=== PATIENT | female | born 1950 | race Caucasian/White ===

== ENCOUNTER 2021-09-30 08:38 | Emergency (ER) | payer MEDICARE ==
[~2021-09-30 08:38] MED LIST: ALLEGRA ALLERG180 MG PO; ALLOPURINOL 10100 MG PO; ALLOPURINOL 30300 MG PO; AUGMENTIN 500-1 EACH PO; BACTRIM DS TAB1 EACH PO; CRESTOR40 M1 PO; FLONASE ALLER15.8 ML; GUAIFENESI100 MG/5 M PO; JANUMET XR 50-1 EACH PO; MELATONIN5 M2 PO; METOPROLOL SUCC25 MG PO; MICON-GUARD 2% TOP; MIRALAX 238GM238 GM PO; MIRALAX17 GM PO; OLMESARTAN-HCT1 EAC1 PO; ROSUVASTATIN CA40 MG PO; SENNA LAX8.6 MG PO; SILVASORB44.4 ML TOP; SODIUM BICARBO650 M1 PO; STAHIST AD TAB1 EACH PO; TRAVOPROST2.5 ML EYEBOTH
[2021-09-30 11:12] LABS: BILIRUBIN NEGATIVE (NEGATIVE); BLOOD 3+ Ery/uL (NEGATIVE); CLARITY CLEAR (CLEAR); COLOR YELLOW (YELLOW); GLUCOSE (U) NORMAL (NORMAL); LEUKOCYTES 1+ Leu/uL (NEGATIVE); NITRITE NEGATIVE (NEGATIVE); PROTEIN TRACE (LOW) mg/dL (NEGATIVE); SPECIFIC GRAVITY 1.015 (1.001-1.030); UROBILINOGEN 0.2 mg/dL (0.2-1.0)
[2021-09-30 11:33] LABS: BASOPHIL 0.6 % (0-2); EOSINOPHIL 0.9 % (0-7); HCT 35.6 % (37.0-47.0); HGB 10.8 g/dl (12.5-16.0); LYMPHOCYTE 16.9 % (15-48); MCH 30.2 pg (25.0-31.0); MCHC 30.3 g/dL (32.0-36.0); MCV 99.4 fL (78.0-100.0); MONOCYTE 5.5 % (0-12); MPV 12.1 fL (6.0-9.5); NEUTROPHIL 75.4 % (41-80); NRBC 0; PLT 195 K/uL (150-400); RBC 3.58 M/uL (4.20-5.40); RDW 15.7 % (11.5-14.0); WBC 10.7 K/uL (4.0-10.5)
[2021-09-30 11:34] LABS: ALBUMIN 3.3 g/dL (3.4-5.0); BILIRUBIN - TOTAL 0.3 mg/dL (0.2-1.0); BUN/CREAT RATIO (CALC) 13.9 RATIO; CREATININE 2.31 mg/dL (0.51-0.95); GLOBULIN (CALCULATION) 3.9 g/dL; POTASSIUM 4.6 mmol/L (3.5-5.1); TOTAL PROTEIN 7.2 g/dL (6.4-8.2)
[2021-09-30 11:57] LABS: BACTERIA 1+
[2021-09-30] MEDS ORDERED: FIORICET1 EACH PO (12:42)
== END 2021-09-30 13:21 | disposition home or self-care (01) ==
LOC: FER 08:38
PROVIDERS: Emergency Medicine
DX: G43.909 Migraine, unspecified, not intractable, without status migrainosus (principal); E11.22 Type 2 diabetes mellitus with diabetic chronic kidney disease; I12.9 Hypertensive chronic kidney disease with stage 1 through stage 4 chronic kidney disease, or unspecified chronic kidney disease; N18.4 Chronic kidney disease, stage 4 (severe); Z91.041 Radiographic dye allergy status; Z88.6 Allergy status to analgesic agent
CPT/HCPCS: 36415; 70450; 80053; 81001; 85025; 87088; J2405

== ENCOUNTER 2021-12-19 12:21 | Inpatient (IN) | payer MEDICARE ==
[~2021-12-19] VITALS: Ht 154.9 cm; Wt 83.7 kg
[~2021-12-19 12:21] MED LIST changes: +FIORICET1 EACH PO
[2021-12-19 13:22] LABS: BASOPHIL 0.4 % (0-2); EOSINOPHIL 0.1 % (0-7); HCT 36.7 % (37.0-47.0); HGB 11.8 g/dl (12.5-16.0); LYMPHOCYTE 13.3 % (15-48); MCH 31.7 pg (25.0-31.0); MCHC 32.2 g/dL (32.0-36.0); MCV 98.7 fL (78.0-100.0); MONOCYTE 5.6 % (0-12); MPV 11.6 fL (6.0-9.5); NEUTROPHIL 80.1 % (41-80); NRBC 0; PLT 251 K/uL (150-400); RBC 3.72 M/uL (4.20-5.40); RDW 15.6 % (11.5-14.0); WBC 13.9 K/uL (4.0-10.5)
[2021-12-19 13:36] LABS: ALBUMIN 3.5 g/dL (3.4-5.0); BILIRUBIN - TOTAL 0.5 mg/dL (0.2-1.0); BUN/CREAT RATIO (CALC) 20.4 RATIO; CREATININE 2.3 mg/dL (0.51-0.95); GLOBULIN (CALCULATION) 3.8 g/dL; POTASSIUM 4.2 mmol/L (3.5-5.1); TOTAL PROTEIN 7.3 g/dL (6.4-8.2)
[2021-12-19 14:02] LABS: CORONAVIRUS 2019 SARS-COV-2 NEGATIVE (NEGATIVE); INFLUENZA A NAA NEGATIVE (NEGATIVE)
[2021-12-19 14:23] LABS: BILIRUBIN NEGATIVE (NEGATIVE); BLOOD 2+ Ery/uL (NEGATIVE); CLARITY HAZY (CLEAR); COLOR YELLOW (YELLOW); GLUCOSE (U) NORMAL (NORMAL); LEUKOCYTES 1+ Leu/uL (NEGATIVE); NITRITE NEGATIVE (NEGATIVE); PROTEIN 1+ mg/dL (NEGATIVE); SPECIFIC GRAVITY 1.015 (1.001-1.030); UROBILINOGEN 0.2 mg/dL (0.2-1.0)
[2021-12-19 14:41] LABS: BACTERIA 2+; URINARY WBC 20-50
[2021-12-19 15:29] LABS: LACTIC ACID 1.5 mmol/L (0.4-1.9)
[2021-12-19] MEDS ORDERED: MIRALAX17 GM PO (22:35)
[2021-12-19] MEDS ORDERED: ALENDRONATE SOD35 MG PO (22:37)
[2021-12-19] MEDS ORDERED: MELATONIN5 M2 PO (22:38)
[2021-12-19] MEDS ORDERED: SYNTHROID25 MCG PO (22:40)
[2021-12-20 08:45] LABS: BASOPHIL 0.5 % (0-2); EOSINOPHIL 0.9 % (0-7); HCT 33.2 % (37.0-47.0); HGB 10.3 g/dl (12.5-16.0); LYMPHOCYTE 14.2 % (15-48); MCH 30.9 pg (25.0-31.0); MCV 99.7 fL (78.0-100.0); MONOCYTE 6.8 % (0-12); MPV 11.6 fL (6.0-9.5); NEUTROPHIL 76.9 % (41-80); NRBC 0; PLT 190 K/uL (150-400); RBC 3.33 M/uL (4.20-5.40); RDW 15.5 % (11.5-14.0); WBC 10.2 K/uL (4.0-10.5)
[2021-12-20 09:05] LABS: ALBUMIN 2.8 g/dL (3.4-5.0); BILIRUBIN - TOTAL 0.4 mg/dL (0.2-1.0); BUN/CREAT RATIO (CALC) 20.1 RATIO; CREATININE 1.99 mg/dL (0.51-0.95); GLOBULIN (CALCULATION) 3.2 g/dL; POTASSIUM 3.5 mmol/L (3.5-5.1)
--- NOTE | 2021-12-21 10:33 | NUR ---
GALEN WITH PT. DAUGHTER SANDY. SHE WANTS HH FOR HER MOTHER. PT OTHER DAUGHTER, RODRIGO WILL BE STAYING WITH THE PT DURING THE DAY. PT. HAS A RW, CASSIUSE, 01/07 AND LIFT CHAIR. PT DOES NOT HAVE A PREFERENCE FOR HH, JUST ONE THAT WILL ACCEPT HER MOTHER'S INSURANCE. RINA WITH [facility] WILL ACCEPT PT FOR HH SERVICES.
--- NOTE | 2021-12-21 10:35 | NUR ---
PLEASE CONTACT [facility] ON PT. D/C.
[2021-12-21] MEDS ORDERED: CEFDINIR300 MG PO (11:21)
== END 2021-12-21 15:00 | disposition home health service (06) | DRG 689 ==
LOC: FER 12:21 → FMS 17:52
PROVIDERS: Emergency Medicine; Nurse Practitioner; Nurse Practitioner Family; ADMIT Internal Medicine
DX: N30.01 Acute cystitis with hematuria (principal); G93.41 Metabolic encephalopathy; N18.4 Chronic kidney disease, stage 4 (severe); Z20.822 Contact with and (suspected) exposure to COVID-19; I12.9 Hypertensive chronic kidney disease with stage 1 through stage 4 chronic kidney disease, or unspecified chronic kidney disease; E11.22 Type 2 diabetes mellitus with diabetic chronic kidney disease; E03.9 Hypothyroidism, unspecified; M10.9 Gout, unspecified; M81.0 Age-related osteoporosis without current pathological fracture; E78.5 Hyperlipidemia, unspecified; D50.9 Iron deficiency anemia, unspecified; E55.9 Vitamin D deficiency, unspecified; Z96.641 Presence of right artificial hip joint; Z88.6 Allergy status to analgesic agent; Z88.8 Allergy status to other drugs, medicaments and biological substances; Z87.891 Personal history of nicotine dependence; Z98.41 Cataract extraction status, right eye; Z98.42 Cataract extraction status, left eye
CPT/HCPCS: 36415; 71045; 80053; 81001; 83605; 85025; 87040; 87088; 93005; 94010; 94760; 94762; 97162; 97165; 97530-GP; 97535; J0696; J1650; J7030; U0002